=== PATIENT | male | born 1960 | race Caucasian/White ===

== ENCOUNTER 2018-05-03 05:59 | Emergency (ER) | payer OTHER ==
[2018-05-03] MEDS ORDERED: ONDANSETRON 4 MG/2 ML VIAL IVP ONE (06:34)
[2018-05-03] MEDS ORDERED: NS 1,000 ML IV ONE ×2 (06:34)
[2018-05-03] MEDS ORDERED: KETOROLAC 30 MG/1 ML SDV IVP ONE (06:34)
[2018-05-03] MEDS ORDERED: LIDOCAINE 1% 180 MG in NS 100 ML IV ONE (06:35)
--- NOTE | 2018-05-03 06:35 | EDPHY ---
H & P Stated Complaint: right flank pain Source: Patient Exam Limitations: No limitations - Personal History Current Tetanus/Diphtheria Vaccine: Unsure Current Tetanus Diphtheria and Acellular Pertussis (TDAP): Unsure - Medical/Surgical History Hx Asthma: No Hx Chronic Respiratory Disease: No Hx Diabetes: No Hx Cardiac Disease: No Hx Renal Disease: No Hx Cirrhosis: No Hx Alcoholism: No Hx HIV/AIDS: No Hx Splenectomy or Spleen Trauma: No Other PMH: kidney stones - Social History Smoking Status: Never smoked Time Seen by Provider: 05/03/18 06:07 HPI/ROS: HPI The patient presents with right flank pain which began several hours ago and awoke him from sleep. The pain is dull, radiates toward his abdomen, lasted for several hours though now has subsided somewhat. It is associated with nausea without any vomiting. The pain feels similar to a kidney stone he was diagnosed with 2 years ago while in [facility]. He does not have any fevers or chills. REVIEW OF SYSTEMS Constitutional: No fever, no chills. Eyes: No discharge. ENT: No sore throat. Cardiovascular: No chest pain, no palpitations. Respiratory: No cough, no shortness of breath. Gastrointestinal: No abdominal pain, no vomiting. Genitourinary: Positive for hematuria. Musculoskeletal: No back pain. Skin: No rashes. Neurological: No headache. PMHx: History of ureterolithiasis, seen in [facility], had ultrasound performed to confirm diagnosis Soc Hx: Here with his , supposed to be leaving on a trip to [place] this morning PHYSICAL General Appearance: Alert, no distress Eyes: Pupils equal and round no pallor or injection ENT, Mouth: Mucous membranes moist Respiratory: There are no retractions, lungs are clear to auscultation Cardiovascular: Regular rate and rhythm Gastrointestinal: Abdomen is soft and non-tender, no masses, bowel sounds normal Back: There is right-sided flank tenderness Neurological: A&O, moves all extremities Skin: Warm and dry, no rashes Musculoskeletal: Neck is supple non tender Extremities: symmetrical, full range of motion Psychiatric: Patient is oriented X 3, there is no agitation (RiguzziKatie) Constitutional: Initial Vital Signs Temperature (C) 37.0 C 05/03/18 05:59 Heart Rate 71 05/03/18 05:59 Respiratory Rate 16 05/03/18 05:59 Blood Pressure 153/98 H 06/21/18 05:59 O2 Sat (%) 98 05/03/18 05:59 O2 Delivery Mode Room Air Allergies/Adverse Reactions: Penicillins Allergy (Verified 05/03/18 06:03) Home Medications: Medication Instructions Recorded Omeprazole 05/03/18 oxyCODONE/APAP 5/325 [Percocet] 1 tab PO Q4-6PRN PRN #7 tab 05/03/18 Medical Decision Making Procedures: Bedside retroperitoneal Ultrasound- performed and interpreted by me. Indication: Right flank pain Findings: Mild hydronephrosis of right kidney, 2 kidney stones are visualized, there is no fluid in Morison's pouch Impression: Mild hydronephrosis of right kidney (Katie Ya) Differential Diagnosis: This is a 57-year-old male with history of ureterolithiasis about 2 years ago presenting with right-sided flank pain that feels identical to his prior episode. His pain has somewhat subsided since arriving in the emergency department. Patient was started on IV fluids, Toradol, lidocaine, Zofran with improvement in his symptoms. Labs were checked and did reveal an initial potassium of 7.1, however I suspect this is hemolyzed and will be redrawn. UA demonstrates hematuria. KUB was obtained and showed At about 7:30 a.m., the case is signed out to the oncoming provider Dr. Garner pending reassessment of the patient. I anticipate he will be stable for discharge shortly. (Katie Ya) Other Provider: Care assumed at 7:15 a.m. With plan for symptomatic treatment and discharge if his symptoms are well controlled. 720: Patient is asymptomatic now. He wants to avoid radiation and not have the KUB x-ray which I think is reasonable at this point. He was able to pass stones in the past and understands that without x-ray will have less information about size. Symptomatic treatment with nonsteroidals and Percocet for breakthrough pain and outpatient follow-up. Potassium redrawn, initial value of greater than 7 likely due to hemolysis. 731: I-STAT potassium 4.1. (Yann Garner) - Data Points Laboratory Results: Laboratory Results 05/03/18 06:20 05/03/18 06:20 05/03/18 05/03/18 05/03/18 06:20 06:20 06:20 WBC 7.53 10^3/uL 10^3/uL (3.80-9.50) RBC 5.60 10^6/uL 10^6/uL (4.40-6.38) Hgb 17.4 g/dL g/dL (13.7-17.5) Hct 50.7 % % (40.0-51.0) MCV 90.5 fL fL (81.5-99.8) MCH 31.1 pg pg (27.9-34.1) MCHC 34.3 g/dL g/dL (32.4-36.7) RDW 13.5 % % (11.5-15.2) Plt Count 229 10^3/uL 10^3/uL (150-400) MPV 10.3 fL fL (8.7-11.7) Neut % (Auto) 69.6 % % (39.3-74.2) Lymph % (Auto) 20.6 % % (15.0-45.0) [place] % (Auto) 6.8 % % (4.5-13.0) Eos % (Auto) 1.3 % % (0.6-7.6) Baso % (Auto) 0.9 % % (0.3-1.7) Nucleat RBC Rel Count 0.0 % % (0.0-0.2) Absolute Neuts (auto) 5.24 10^3/uL 10^3/uL (1.70-6.50) Absolute Lymphs (auto) 1.55 10^3/uL 10^3/uL (1.00-3.00) Absolute Monos (auto) 0.51 10^3/uL 10^3/uL (0.30-0.80) Absolute Eos (auto) 0.10 10^3/uL 10^3/uL (0.03-0.40) Absolute Basos (auto) 0.07 10^3/uL 10^3/uL (0.02-0.10) Absolute Nucleated RBC 0.00 10^3/uL 10^3/uL (0-0.01) Immature Gran % 0.8 % % (0.0-1.1) Immature Gran # 0.06 10^3/uL 10^3/uL (0.00-0.10) Sodium 137 mEq/L mEq/L (135-145) Potassium 7.1 mEq/L H* mEq/L (3.3-5.0) Chloride 103 mEq/L mEq/L (97-110) Carbon Dioxide 21 mEq/l L mEq/l (22-31) Anion Gap 13 mEq/L mEq/L (8-16) BUN 20 mg/dL mg/dL (7-23) Creatinine 1.0 mg/dL mg/dL (0.7-1.3) Estimated GFR > 60 Glucose 93 mg/dL mg/dL (70-100) Calcium 9.6 mg/dL mg/dL (8.5-10.4) Specimen Hemolysis 295 Urine Color YELLOW Urine Appearance MODERATELY TURBID Urine pH 5.0 (5.0-7.5) Ur Specific [place] 1.023 (1.002-1.030) Urine Protein 2+ H (NEGATIVE) Urine Ketones NEGATIVE (NEGATIVE) Urine Blood 3+ H (NEGATIVE) Urine Nitrate NEGATIVE (NEGATIVE) Urine Bilirubin NEGATIVE (NEGATIVE) Urine Urobilinogen NEGATIVE EU EU (0.2-1.0) Ur Leukocyte Esterase NEGATIVE (NEGATIVE) Urine RBC 50-182 /hpf H /hpf (0-3) Urine WBC 1-3 /hpf /hpf (0-3) Ur Epithelial Cells NONE SEEN /lpf /lpf (NONE-1+) Urine Mucus TRACE /lpf /lpf (NONE-1+) Urine Glucose NEGATIVE (NEGATIVE) Medications Given: Discontinued Medications Sodium Chloride (Ns) 1,000 mls @ 0 mls/hr IV ONCE ONE; Wide Open PRN Reason: Protocol Stop: 05/03/18 06:35 Last Admin: 05/03/18 06:36 Dose: 1,000 mls Sodium Chloride (Ns) 1,000 mls @ 0 mls/hr IV ONCE ONE; Wide Open PRN Reason: Protocol Stop: 05/03/18 06:35 Last Admin: 05/03/18 06:41 Dose: 1,000 mls Ketorolac Tromethamine (Toradol) 15 mg IVP EDNOW ONE Stop: 05/03/18 06:35 Last Admin: 05/03/18 06:41 Dose: 15 mg Ondansetron HCl (Zofran) 4 mg IVP EDNOW ONE Stop: 05/03/18 06:35 Last Admin: 05/03/18 06:41 Dose: 4 mg Departure - Departure Disposition: Home, Routine, Self-Care Clinical Impression: Ureterolithiasis Condition: Good Instructions: Renal Colic (ED) Additional Instructions: 1. Take Ibuprofen (or Motrin) 600 mg by mouth three times a day. 2. Take acetaminophen 1000 mg every 6 hr as needed for pain not improved with ibuprofen 3. Zofran as needed for nausea 4. Strain urine as directed 5. Return to the Emergency Department for intractable pain, fever or vomiting. 6. Followup with the urologist you have been referred to for unimproved symptoms. Referrals: DORIS BUTLER [Primary Care Provider] - As per Instructions Sedrick Anderson MD [Medical Doctor] - As per Instructions Prescriptions: oxyCODONE/APAP 5/325 [Percocet] 1 tab PO Q4-6PRN PRN #7 tab PRN Reason: Pain
[2018-05-03 06:39] LABS: PLATELET COUNT 229 10^3/uL (150-400)
[2018-05-03] MEDS ORDERED: ONDANSETRON 4MG PREPACK#2 BTL TAKEHOME ONE (07:04)
[2018-05-03 07:47] VITALS: BP 147/66
== END 2018-05-03 07:40 | disposition home or self-care (01) ==
DX: N20.1 Calculus of ureter (principal); E86.9 Volume depletion, unspecified
CPT/HCPCS: 82435-PO; 82565-PO; 82947-PO; 84132-PO; 84295-PO; 84520-PO; 85014-PO; 96365; J1885; J2405